=== PATIENT | female | born 1970 | race American Indian/Alaskan Native ===

== ENCOUNTER 2017-02-24 18:39 | Emergency (ER) | payer OTHER ==
[~2017-02-24] VITALS: Ht 157.5 cm; Wt 49.0 kg
[2017-02-24 18:40] VITALS: BP 126/71
[2017-02-24] MEDS ORDERED: ZANA4CAP PO (18:51)
[2017-02-24] MEDS ORDERED: GABA-283 PO (18:51)
[2017-02-24] MEDS ORDERED: VITA100067 PO (18:51)
[2017-02-24] MEDS ORDERED: AUGM875T28 PO (19:14)
[2017-02-24] MEDS ORDERED: AUGMENTIN 875 MG TAB PO ONE (19:15)
[2017-04-07] MEDS ORDERED: DULO30CA PO (14:50)
[2017-04-07] MEDS ORDERED: GABA-283 PO (14:50)
[2017-04-07] MEDS ORDERED: OMEP10CASR PO (14:50)
[2017-04-07] MEDS ORDERED: CALCCHW8 PO (14:50)
[2017-04-07] MEDS ORDERED: RANI15TA PO (14:50)
[2017-04-07] MEDS ORDERED: CALC-190 PO (14:50)
== END 2017-02-24 19:39 | disposition home or self-care (01) ==
LOC: M ED 18:39
DX: S61.258A Open bite of other finger without damage to nail, initial encounter (principal); G89.29 Other chronic pain; F17.210 Nicotine dependence, cigarettes, uncomplicated; W54.0XXA Bitten by dog, initial encounter; Y92.018 Other place in single-family (private) house as the place of occurrence of the external cause; Y99.9 Unspecified external cause status; Y93.9 Activity, unspecified; Z88.2 Allergy status to sulfonamides

== ENCOUNTER 2017-04-13 09:46 | Outpatient (CLI) | payer OTHER ==
[~2017-04-13] VITALS: Ht 157.5 cm; Wt 49.0 kg
[~2017-04-13 09:46] MED LIST: AUGM875T28 PO; CALC-190 PO; CALCCHW8 PO; DULO30CA PO; GABA-283 PO; OMEP10CASR PO; RANI15TA PO; VITA100067 PO; ZANA4CAP PO
[2017-04-13] MEDS ORDERED: NS 1,000 ML IV ONE (10:00)
[2017-04-13] MEDS ORDERED: fentaNYL 100 MCG/2 ML INJECTION (J3010) As Ordered ONE (10:56)
[2017-04-13] MEDS ORDERED: PROPOFOL 200 MG/20 ML VIAL As Ordered ONE (11:08)
[2017-04-13] MEDS ORDERED: LIDOCAINE 2% INJ 100 MG/5 ML SDV (FOR ANES.) As Ordered ONE (11:08)
--- NOTE | 2017-04-13 11:11 | ROOR ---
Patient Name: Christopher Daley Procedure Date: 04/13/2017 10:54 AM Date of : 1970 Age: 47 Room: [facility] Gender: Female Note Status: Finalized Procedure: Upper GI endoscopy Indications: Esophageal reflux Providers: DO Jt Guevara MD: NURY ARRINGTON MD Requesting Provider: Medicines: Propofol per Anesthesia Complications: No immediate complications. Procedure: Pre-Anesthesia Assessment: - Prior to the procedure, a History and Physical was performed, and patient medications and allergies were reviewed. The patient is competent. The risks and benefits of the procedure and the sedation options and risks were discussed with the patient. All questions were answered and informed consent was obtained. Patient identification and proposed procedure were verified by the physician, the nurse, the anesthesiologist and the fuel cell technician in the endoscopy suite. Mental Status Examination: alert and oriented. Airway Examination: normal oropharyngeal airway and neck mobility. Respiratory Examination: clear to auscultation. CV Examination: normal. Prophylactic Antibiotics: The patient does not require prophylactic antibiotics. Prior Anticoagulants: The patient has taken no previous anticoagulant or antiplatelet agents. ASA Grade Assessment: II - A patient with mild systemic disease. After reviewing the risks and benefits, the patient was deemed in satisfactory condition to undergo the procedure. The anesthesia plan was to use monitored anesthesia care (MAC). Immediately prior to administration of medications, the patient was re-assessed for adequacy to receive sedatives. The heart rate, respiratory rate, oxygen saturations, blood pressure, adequacy of pulmonary ventilation, and response to care were monitored throughout the procedure. The physical status of the patient was re-assessed after the procedure. The Endoscope was introduced through the mouth, and advanced to the third part of duodenum. The upper GI endoscopy was accomplished without difficulty. The patient tolerated the procedure well. Findings: Scattered moderate inflammation characterized by congestion (edema), erosions, erythema and friability was found in the prepyloric region of the stomach. Biopsies were taken with a cold forceps for Helicobacter pylori testing. Estimated blood loss was minimal. The Z-line was irregular. Biopsies were taken with a cold forceps for histology. Estimated blood loss was minimal. The exam was otherwise without abnormality. Impression: - Gastritis. Biopsied. - Z-line irregular. Biopsied. - The examination was otherwise normal. Recommendation: - Patient has a contact number available for emergencies. The signs and symptoms of potential delayed complications were discussed with the patient. Return to normal activities tomorrow. Written discharge instructions were provided to the patient. - Telephone my office for pathology results in 1 week. Miguel Lloyd DO 04/13/2017 11:11:02 AM This report has been signed electronically. Number of Addenda: 0 Note Initiated On: 04/13/2017 10:54 AM Estimated Blood Loss: Estimated blood loss was minimal.
[2017-04-13 11:50] VITALS: BP 131/61
== END 2017-04-13 12:14 | disposition home or self-care (01) ==
LOC: M OPP 09:46
PROVIDERS: ATTEND Surgery
DX: K21.9 Gastro-esophageal reflux disease without esophagitis (principal); R10.13 Epigastric pain; R14.0 Abdominal distension (gaseous); K59.00 Constipation, unspecified; K22.8 Other specified diseases of esophagus; K29.70 Gastritis, unspecified, without bleeding; M54.30 Sciatica, unspecified side; M51.26 Other intervertebral disc displacement, lumbar region; M25.60 Stiffness of unspecified joint, not elsewhere classified; M85.80 Other specified disorders of bone density and structure, unspecified site; G43.909 Migraine, unspecified, not intractable, without status migrainosus; Z98.1 Arthrodesis status; F17.210 Nicotine dependence, cigarettes, uncomplicated; Z88.2 Allergy status to sulfonamides; Z79.899 Other long term (current) drug therapy
CPT/HCPCS: 43239; 88305; J3010